=== PATIENT | female | born 1995 ===

== ENCOUNTER 2018-09-27 06:27 | Emergency (ER) | payer MEDICAID, OTHER ==
[2018-09-27 07:04] VITALS: RESP 18
--- NOTE | 2018-09-27 07:16 | C.PDOC ---
- HPI Time Seen by Provider: 09/27/18 07:06 Chief Complaint (Nursing): Trauma Past Medical History Vital Signs: Last Vital Signs Temp 98.3 F 09/27/18 06:38 Pulse 91 H 09/27/18 06:38 Resp 18 09/27/18 06:38 BP 122/75 09/27/18 06:38 Pulse Ox 98 09/27/18 06:38 Family History: States: Unknown Family Hx - Social History Hx Alcohol Use: Yes Hx Substance Use: No - Immunization History Hx Tetanus Toxoid Vaccination: No Hx Influenza Vaccination: No Hx Pneumococcal Vaccination: No ED Course And Treatment O2 Sat by Pulse Oximetry: 98 Disposition - Disposition
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
[2018-09-27 10:18] VITALS: BP 126/72; PULSE 80; TEMP 98
[2018-09-27 10:53] VITALS: O2SAT 98
== END 2018-09-27 10:17 | disposition home or self-care (01) ==
LOC: C.ER 06:27
DX: S00.83XA Contusion of other part of head, initial encounter (principal); V49.9XXA Car occupant (driver) (passenger) injured in unspecified traffic accident, initial encounter